=== PATIENT | female | born 1975 | race Caucasian/White ===

== ENCOUNTER 2016-12-21 18:59 | Emergency (ER) | payer SELFPAY ==
[~2016-12-21] VITALS: Ht 162.6 cm; Wt 54.0 kg
[2016-12-21 19:05] VITALS: Ht 162.6 cm; Wt 54.0 kg
[2016-12-21 20:44] LABS: URINE BLOOD (Dip) POC Trace-lysed (NEGATIVE)
[2016-12-21 20:48] LABS: ADD SCAN DIFF NO
[2016-12-21 21:16] LABS: BASOPHIL # 0.1 10^3/ul (0.0-0.1); BASOPHILS % 0.8 % (0.0-2.0); EOSINOPHILS # 0.3 10^3/ul (0.0-0.5); EOSINOPHILS % 5.1 % (0.0-7.0); HEMATOCRIT 38.5 % (37.0-47.0); HEMOGLOBIN 13.1 g/dl (12.0-16.0); LYMPHOCYTES # 1.4 10^3/ul (0.8-2.9); LYMPHOCYTES % 22.3 % (15.0-51.0); MEAN CORPUSCULAR HEMOGLOBIN 32.1 pg (29.0-33.0); MEAN CORPUSCULAR VOLUME 94.4 fl (82.0-101.0); MEAN PLATELET VOLUME 10.9 fl (7.4-10.4); MONOCYTE # 0.6 10^3/ul (0.3-0.9); MONOCYTES % 9.1 % (0.0-11.0); NEUTROPHIL # 3.9 10^3/ul (1.6-7.5); NEUTROPHILS % 62.5 % (39.0-77.0); PLATELET COUNT 307 10^3/UL (140-415); RED BLOOD COUNT 4.08 10^6/ul (4.20-5.40); WHITE BLOOD COUNT 6.3 10^3/ul (4.8-10.8)
[2016-12-21 21:18] LABS: ALBUMIN 5.1 g/dl (3.3-4.9); ALBUMIN/GLOBULIN RATIO 1.5; BILIRUBIN,INDIRECT 1.8 mg/dl (0-1.1); BILIRUBIN,TOTAL 1.8 mg/dl (0.2-1.3); CALCIUM 9.5 mg/dl (8.4-10.2); CREATININE 0.87 mg/dl (0.44-1.00); POTASSIUM 3.7 mmol/L (3.5-5.1); TOTAL PROTEIN 8.5 g/dl (6.1-8.1)
--- NOTE | 2016-12-21 22:17 | RADRPT ---
PROCEDURE: Ultrasound pelvis CLINICAL INDICATION: miscarriage 4 mos ago. now continued bleeding TECHNIQUE: Multiple emanuel scale and color Doppler images of the pelvis were obtained transabdominal ly and transvaginally. Images were reviewed PACS workstation COMPARISON: None FINDINGS: The uterus is identified, measuring 7.8 x 4.0 x 5.2 cm. The endometrial canal appears within normal limits, measuring 8 mm in thickness. The right ovary measures 3.0 x 0.9 x 1.9 cm. The left ovary measures 4.5 x 3.3 x 3.8 cm. There is a left ovarian cyst measuring 3.8 cm in diameter. The ovaries appear unremarkable in echotexture. T here is bilateral vascular flow identified. There is trace pelvic free fluid. There is no abnormal adnexal mass. IMPRESSION: 1. Left ovarian cyst, 3.8 cm. 2. Trace pelvic free fluid. 3. Otherwise unremarkable examination. The uterus and endometrial canal appear within normal limits . RPTAT: HBST .Brian Lopez MD, MD Date Time Electronically viewed and signed by .Brian Lopez MD, MD on 12/21/2016 22:17 .T/
--- NOTE | 2016-12-21 22:57 | ERD ---
ER Documentation Chief Complaint Date/Time DATE: 12/21/16 TIME: 22:52 Chief Complaint pt had misscarriage 5 weeks ago, vag bleeding x 11 days HPI This a 41-year-old female who presented to the emergency department today for vaginal bleeding. Patient indicated that 1 month ago she had a spontaneous miscarriage. She indicated she was 4 months at that time and there had been demise. She states that initially she had bleeding but the bleeding stopped and then started again 10 days ago. States she changed jobs and does not have insurance currently for another couple of months and therefore did not get a follow-up after the miscarriage. Denies any abdominal pain, fevers or chills, dysuria ROS All systems reviewed and are negative except as per history of present illness. Allergies Allergies: Coded Allergies: No Known Allergy (Unverified , 12/21/16) PMhx/Soc Medical and Surgical Hx: pt denies Medical Hx, pt denies Surgical Hx History of Surgery: No Anesthesia Reaction: No Hx Neurological Disorder: No Hx Respiratory Disorders: No Hx Cardiac Disorders: No Hx Psychiatric Problems: No Hx Miscellaneous Medical Probl: No Hx Alcohol Use: No Hx Substance Use: Yes (weed x 1 week) Hx Tobacco Use: No Physical Exam Vitals Vital Signs Date Time Temp Pulse Resp B/P Pulse Ox O2 Delivery O2 Flow Rate FiO2 12/21/16 19:05 97.8 76 20 142/89 98 Physical Exam Const: No acute distress Head: Atraumatic Eyes: Normal Conjunctiva ENT: Normal External Ears, Nose and Mouth. Neck: Full range of motion..~ No meningismus. Resp: Clear to auscultation bilaterally Cardio: Regular rate and rhythm, no murmurs Abd: Soft, non tender, non distended. Normal bowel sounds Skin: No petechiae or rashes Neur: Awake and alert Psych: Normal Mood and Affect Result Diagram: 12/21/16203412/21/162034 Results 24 hrs Laboratory Tests Test 12/21/16 20:35 12/21/16 20:46 White Blood Count 6.310^3/ul Red Blood Count 4.0810^6/ul Hemoglobin 13.1g/dl Hematocrit 38.5% Mean Corpuscular Volume 94.4fl Mean Corpuscular Hemoglobin 32.1pg Mean Corpuscular Hemoglobin Concent 34.0g/dl Red Cell Distribution Width 13.0% Platelet Count 83072^3/UL Mean Platelet Volume 10.9fl Neutrophils % 62.5% Lymphocytes % 22.3% Monocytes % 9.1% Eosinophils % 5.1% Basophils % 0.8% Nucleated Red Blood Cells % 0.0/100WBC Neutrophils # 3.910^3/ul Lymphocytes # 1.410^3/ul Monocytes # 0.610^3/ul Eosinophils # 0.310^3/ul Basophils # 0.110^3/ul Nucleated Red Blood Cells # 0.010^3/ul Sodium Level 140mmol/L Potassium Level 3.7mmol/L Chloride Level 106mmol/L Carbon Dioxide Level 28mmol/L Anion Gap 10 Blood Urea Nitrogen 18mg/dl Creatinine 0.87mg/dl Glucose Level 106mg/dl Calcium Level 9.5mg/dl Total Bilirubin 1.8mg/dl Direct Bilirubin 0.00mg/dl Indirect Bilirubin 1.8mg/dl Aspartate Amino Transf (AST/SGOT) 29IU/L Alanine Aminotransferase (ALT/SGPT) 34IU/L Alkaline Phosphatase 56IU/L Total Protein 8.5g/dl Albumin 5.1g/dl Globulin 3.40g/dl Albumin/Globulin Ratio 1.50 Bedside Urine pH (LAB) 5.5 Bedside Urine Protein (LAB) Trace Bedside Urine Glucose (UA) Negative Bedside Urine Ketones (LAB) 1+ Bedside Urine Blood Trace-lysed Bedside Urine Nitrite (LAB) Negative Bedside Urine Leukocyte Esterase (L Negative DIAGNOSTIC IMAGING REPORT Patient: KATHY BALTAZAR : 1975 Age: 41 Sex: F [id number] DOS: 12/21/16 0000 Ordering MD: TIO ENRIQUEZ PA-C [facility] Room/Bed: PROCEDURE: Ultrasound pelvis CLINICAL INDICATION: miscarriage 4 mos ago. now continued bleeding TECHNIQUE: Multiple emanuel scale and color Doppler images of the pelvis were obtained transabdominally and transvaginally. Images were reviewed PACS workstation COMPARISON: None FINDINGS: The uterus is identified, measuring 7.8 x 4.0 x 5.2 cm. The endometrial canal appears within normal limits, measuring 8 mm in thickness. The right ovary measures 3.0 x 0.9 x 1.9 cm. The left ovary measures 4.5 x 3.3 x 3.8 cm. There is a left ovarian cyst measuring 3.8 cm in diameter. The ovaries appear unremarkable in echotexture. There is bilateral vascular flow identified. There is trace pelvic free fluid. There is no abnormal adnexal mass. IMPRESSION: 1. Left ovarian cyst, 3.8 cm. 2. Trace pelvic free fluid. 3. Otherwise unremarkable examination. The uterus and endometrial canal appear within normal limits. RPTAT: HBST .Brian Lopez MD, MD Date Time Electronically viewed and signed by .Brian Lopez MD, on 12/21/2016 22:17 .T/ CC: TIO ENRIQUEZ PA-C Procedures/MDM This is a 41-year-old female who presents to the emergency department today complaining of vaginal bleeding after spontaneous miscarriage approximately 1 month ago. I did obtain laboratory work as well as an ultrasound. UA is negative for infection. test is negative Laboratory work shows no elevated white blood cell count. She is not anemic. Platelets are within normal limits. Electrolytes are within normal limits. Liver functions within normal limits. Ultrasound shows a left ovarian cyst of 3.8 cm. The ovaries appear unremarkable. There is bilateral vascular flow identified. There is trace pelvic free fluid. There is no abnormal adnexal mass. Patient denies any abdominal pain here in the emergency department and low suspicion for ectopic , tubo-ovarian abscess, ovarian torsion, acute surgical abdomen. Her symptoms at this time was consistent with vaginal bleeding of uncertain etiology. There is not appear to be retained products of conception. There is no indication for transfusion at this time. Patient symptoms at this time is consistent with vaginal bleeding versus dysfunctional uterine bleeding. Patient was instructed to follow-up with an [employer]. I have given her a list of resources. At this time the patient is stable for discharge and outpatient management. Patient should follow up with their PCP in the next 1-2 days. They may return to the emergency department sooner for any persistent or worsening of symptoms. Patient understood and agreed with the plan. Discussed the patient with Dr. Sarah and he is in agreement with the plan. Departure Diagnosis: Primary Impression: Vaginal bleeding Condition: TIO Rosado PA-C December 21, 2016 22:57
== END 2016-12-21 23:14 | disposition home or self-care (01) ==
LOC: FTE 18:59
DX: N93.9 Abnormal uterine and vaginal bleeding, unspecified (principal)
CPT/HCPCS: 76830; 76856; 80053; 81003; 85025